=== PATIENT | female | born 1965 ===

== ENCOUNTER 2018-10-23 09:55 | Outpatient (CLI) | payer SELFPAY | END 2018-10-23 09:56 | disposition home or self-care (01) | LOC: C.LAB 09:55 | DX: E11.65 Type 2 diabetes mellitus with hyperglycemia (principal); E78.1 Pure hyperglyceridemia ==

== ENCOUNTER 2018-11-06 08:31 | Outpatient (CLI) | payer OTHER | END 2018-11-06 08:32 | disposition home or self-care (01) | LOC: C.USIC 08:31 | DX: K76.0 Fatty (change of) liver, not elsewhere classified (principal) ==